=== PATIENT | male | born 1990 | race Caucasian/White ===

== ENCOUNTER 2018-11-20 15:00 | Emergency (ER) | payer MEDICAID, OTHER ==
[~2018-11-20] VITALS: Ht 182.9 cm; Wt 64.0 kg
--- NOTE | 2018-11-20 15:29 | NUR ---
PT TO ROOM FROM LOBBY, GAIT STEADY
--- NOTE | 2018-11-20 15:34 | NUR ---
CONTACT WITH PT, 28 YR OLD MALE HERE WITH C/O "I HAD A SURGERY, HOMORRHOIDECTOMY LAST TAWNYA, HAVING POST SURGICAL ISSUES, CLEARING FULL BOWEL MOVEMENTS, I HAVE A PELVIC DYSFUNCTION ISSUE, A LOT OF PROBLEMS WITH CONSTIPATION" PT WANTS TO MAKE SURE SURGICAL SITE LOOKS OK. DR RODRIGUEZ AT BEDSIDE.
--- NOTE | 2018-11-20 15:52 | NUR ---
PT TO RADIOLOGY VIA W/C
--- NOTE | 2018-11-20 15:57 | NUR ---
PT RETURN TO ROOM. WAITING FOR TEST RESULTS.
--- NOTE | 2018-11-20 16:28 | NUR ---
PT SITTING UP ON GURNEY, NO ACUTE DISTRESS NOTED. NO IV TO DC. REVIEWED DC INSTRUCTIONS WITH PT. UNDERSTANDING VERBALIZED. PT TO LEAVE AMB.
[2018-11-20 16:29] VITALS: BP 136/76
== END 2018-11-20 16:31 | disposition home or self-care (01) ==
LOC: ED 16:25
DX: K64.4 Residual hemorrhoidal skin tags (principal); K59.00 Constipation, unspecified
CPT/HCPCS: 74018; 99283